=== PATIENT | female | born 1980 | race Caucasian/White ===

== ENCOUNTER 2019-06-05 00:18 | Day surgery (SDC) | payer OTHER, SELFPAY ==
[2019-05-21 14:10] VITALS: BMI 28.2
[2019-06-05] VITALS (12 sets, daily range): BP systolic 113–140; BP diastolic 76–88; PULSE 64–101; RESP 13–19; TEMP 36.5–36.7; O2SAT 91–100
[2019-06-05] MEDS: LACTATED RINGERS 1,000 ML 30 ML IV CONT ×3 (09:20→14:51)
--- NOTE | 2019-06-05 09:45 | WPDANESEPPF ---
Anes - Initial Pre Proc Eval Procedure: Operation Date: 06/05/19 10:30 Proposed Procedures p Bilateral Breast Implant Exchange with Strattice Placement - Marcus Renner MD Date/Time: 06/05/19 09:45 Surgeon: Marcus Renner MD Pre Op Diagnosis: Bilat capsular contracture Patient Data Age: 38 Gender: F Height: 1.57 m Weight: 67.4 kg Allergies Allergy/AdvReac Type Severity Reaction Status Date / Time No Known Allergies Allergy Verified 06/05/19 08:56 Home Medications Medication Instructions Recorded Confirmed Type biotin 1 mg PO DAILY 05/21/19 06/05/19 History fluoxetine [Prozac] 20 mg PO DAILY 05/21/19 06/05/19 History multivitamin with minerals 1 tablet PO DAILY 06/05/19 06/05/19 History [Multiple Vitamin-Minerals] Patient hx anesthesia problems: none Family hx anesthesia problems: none [facility] Past Medical History Medical History (Updated 06/05/19 @ 08:56 by Misha Tsai MD) Anxiety Social History Social History Smoking status: Never smoker Alcohol intake: current Gender identity (if verbalized by the patient): Female Anes - Eval Final PreProcedure Day of Procedure 06/05/19 09:45 Patient weight: overweight Heart: regular rate and rhythm Lungs: clear to auscultation and normal air movement Airway: Mallampati scale class II Neurological: alert and oriented Last oral intake: >/= 8 hours ASA classification: II Emergent: no Anesthetic plan: proceed Anesthesia type and monitoring: general LMA Informed Consent: The patient's anesthetic plan and its attendant risks and benefits were discussed with the patient/family/POA. Questions were solicited and answers provided to the satisfaction of the patient/family/POA.
--- NOTE | 2019-06-05 10:25 | WPDHPUPDATE1 ---
History and Physical Update Update Date/Time: 06/05/19 10:25 History and Physical has been reviewed, including an updated exam of the patient. There are NO changes in the patient's condition. Risks, benefits, and alternatives have been discussed and questions answered. Patient agrees to proceed with procedure.
[2019-06-05] MEDS: ceFAZolin 2 GM/D5W 50 ML 2 GM/50 ML BAG IVPB (11:02)
[2019-06-05] MEDS: LIDO 1%/EPINEPHRINE 1:100,000 20 ML VIAL 80 ML INFILTRATE (11:42)
--- NOTE | 2019-06-05 14:11 | SUR.OPER ---
EBL:20CC
--- NOTE | 2019-06-05 14:36 | PM.PROC ---
Procedure Note - Detailed Date of procedure: 06/05/19 Pre-op diagnosis: Bilat capsular contracture history breast augmentation Procedure performed: 1. Bilateral implant exchange (subglandular to submuscular). 2. Bilateral capsulectomy 3. Bilateral strattice placement Description of procedure: She is here today for bilateral breast implant exchange with bilateral capsular contracture. Previously and again today the risks, benefits, alternatives were discussed in extensive detail. I wanted her to be very realistic about the risks involved as well as expectations. We discussed aftercare and what to monitor for. Made sure answered all of her questions to her satisfaction today and consent was obtained. The patient was taken to the operating room placed supine on the operating table. Anesthesia was provided by anesthesiology. A surgical time-out was taken. We cleansed the skin and 1% lidocaine and 0.25% Marcaine with epinephrine was used anesthetize as a field block. She was prepped and draped in a standard sterile fashion. Tegaderm nipple Buenrostro were placed. A 15 blade used to make an incision along the inframammary fold. I continued dissection until the capsule was identified. We elevated just above the capsule and was able to remove the majority of the capsule. Any remaining capsule was completely cauterized. Preoperatively we discussed sending capsule. I saw nothing worrisome about the capsules and the patient has adamantly refused sending the capsules. I was very up front honest that I can never guarantee there is no disease or cancer in these capsules without sending. This was a very up front honest conversation making sure she made well-informed decision and she declines sending the capsules understanding the risks. Splints removed I irrigated with 3 L total saline on TUR tubing. I verified a strict hemostasis. I then released the pectoralis major along its inferior border. I created a subpectoral pocket of appropriate dimensions. Again irrigated with saline solution and verified strict hemostasis. I placed 15 Josh drains bilaterally. Sutured into place with 3-0 nylon. Ultimately the drains run deep to the Strattice and change planes to the superficial plane so that both were drained. I soaked the Strattice extensively in the Betadine and triple antibiotic solution prior to placing it. Strattice was sutured along the inferior border using a 3-0 Vicryl. Also sutured along the medial aspect of the muscle. I verified hemostasis and copious irrigated with triple antibiotic and Betadine containing solution. The implant was introduced in the pocket after washed my hands and soaking the implant in the solution. I then closed the remaining Strattice to the muscle to cover this inferior border of the implant. Having verified positioning of the implant this was closed using 2-0 Vicryl followed by 3-0 Monocryl in a running subcuticular 4-0 Monocryl followed by tissue glue. Fluffs and surgical bra were placed. Patient was awoke and taken to PACU without difficulty. All instrument sponge counts were correct at the end of the case. Implants: Right: REF SSM-600 SN [id number] Left: REF SSM-600 SN [id number] Strattice Lot# [id number] REF# [id number] Anesthesia: GLMA Surgeon: Marcus Renner MD Estimated blood loss (mL): 20 Drains: Yes (Bilateral josh 15) Packing: No Pathology: none sent Complications: No immediate complications Condition: stable Disposition: PACU
[2019-06-05] MEDS: HYDROMORPHONE HCL 1 MG/ML INJ 0.25 MG IV PUSH ×4 (15:08→15:26)
[2019-06-05] MEDS: HYDROMORPHONE HCL 1 MG/ML INJ 0.5 MG IV PUSH ×2 (15:40→15:46)
== END 2019-06-05 17:25 | disposition home or self-care (01) ==
PROVIDERS: PCP Family Medicine; Visit Provider Surgery Plastic and Reconstructive Surgery
PROC: (CPT 19342; principal; 2019-06-05 10:30)
DX: T85.44XA Capsular contracture of breast implant, initial encounter (principal); Y83.8 Other surgical procedures as the cause of abnormal reaction of the patient, or of later complication, without mention of misadventure at the time of the procedure; F41.9 Anxiety disorder, unspecified
CPT/HCPCS: 19371; 19325; 15777 ×2; A9270; J0690; J1100; J1170; J1580; J2250; J2405; J2704; J3010; J7030; J7120